=== PATIENT | female | born 1965 | race Caucasian/White ===

== ENCOUNTER 2017-01-05 12:05 | Emergency (ER) | payer MEDICAID | END 2017-01-05 17:22 | disposition home or self-care (01) | LOC: D.ER 12:05 | DX: M54.5 Low back pain (principal); M06.9 Rheumatoid arthritis, unspecified; F31.89 Other bipolar disorder; B19.20 Unspecified viral hepatitis C without hepatic coma; F20.9 Schizophrenia, unspecified ==

== ENCOUNTER 2017-05-20 10:21 | Observation (INO) | payer MEDICAID ==
[2017-05-20 11:58] LABS: BASOPHILS 0.4 % (0-2); EOSINOPHILS 1.3 % (0-7); HEMATOCRIT 34.6 % (36.0-48.0); HEMOGLOBIN 11.4 g/dL (12-16); IMMATURE GRANULOCYTES 0.4 % (0-5); LYMPHOCYTES 18.8 % (15-50); MCH 29.2 pg (26.0-34.0); MCHC 32.9 g/dL (31.0-37.0); MCV 88.7 fL (80.0-100.0); MEAN PLATELET VOLUME 9.5 fL (7.4-10.4); MONOCYTES 9.4 % (2-11); NEUTROPHILS 69.7 % (40-80); RDW 14.8 % (11.5-14.5); WBC 7.8 10x3/uL (4.8-10.8)
[2017-05-20 11:58] LABS: UDS - AMPHET NEGATIVE QUAL (NEGATIVE); UDS - BARB NEGATIVE QUAL (NEGATIVE); UDS - BENZO POSITIVE QUAL (NEGATIVE); UDS - COCAINE NEGATIVE QUAL (NEGATIVE); UDS - OPIATE POSITIVE QUAL (NEGATIVE); UDS - PCP NEGATIVE QUAL (NEGATIVE); UDS - THC NEGATIVE QUAL (NEGATIVE)
[2017-05-20 12:03] LABS: PLATELET COUNT 264 10x3/uL (130-400)
[2017-05-20 12:11] LABS: ALBUMIN 3.6 g/dL (3.4-5.0); ALKALINE PHOSPHATASE 77 U/L (46-116); ALT (SGPT) 24 U/L (10-68); BILIRUBIN - TOTAL 0.15 mg/dL (0.2-1.3); CALC OSMOLALITY 288 mosm/kg (275-300); CALCIUM 9.2 mg/dL (8.5-10.1); CHLORIDE - SERUM 106 mmol/L (98-107); GLUCOSE 103 mg/dL (74-106); PROTEIN - SERUM 7.9 g/dL (6.4-8.2); SODIUM 143 mmol/L (136-145); UREA NITROGEN 24 mg/dL (7-18); eGFR NON AFRICAN AMERICAN 61 mL/min (90-120)
[2017-05-20 12:11] LABS: APPEARANCE HAZY (CLEAR); BACTERIA FEW /hpf (NONE SEEN); BILIRUBIN NEGATIVE (NEGATIVE); COLOR YELLOW (YELLOW); GLUCOSE NEGATIVE (NEGATIVE); HYALINE CAST 0-5 /lpf (NONE SEEN); KETONE NEGATIVE (NEGATIVE); MUCUS <1+ /lpf (NONE SEEN); NITRITE NEGATIVE (NEGATIVE); PROTEIN NEGATIVE (NEGATIVE); RED CELLS - URINE RARE /hpf (0-5); SPECIFIC GRAVITY 1.015 (1.005-1.020); UROBILINOGEN NORMAL (NORMAL)
[2017-05-20 12:22] LABS: CKMB 0.6 U/L (0.0-3.6); CREATINE KINASE 117 UL (21-215)
[2017-05-20 12:23] LABS: TROPONIN-I < 0.017 ng/mL (0.000-0.060)
[2017-05-20 15:55] LABS: CKMB 0.6 U/L (0.0-3.6); CREATINE KINASE 110 UL (21-215); TROPONIN-I < 0.017 ng/mL (0.000-0.060)
[2017-05-20 17:24] VITALS: BP 122/72; BMI 39.9
[2017-05-20 20:00] VITALS: BP 128/80
[2017-05-20 22:04] LABS: CKMB 0.5 U/L (0.0-3.6); CREATINE KINASE 99 UL (21-215); TROPONIN-I < 0.017 ng/mL (0.000-0.060)
--- NOTE | 2017-05-20 22:33 | NUR ---
PRN ZOFRAN ADMINISTERED AT THIS TIME. PT ALERT X3, STATES THAT SHE DOES NOT KNOW WHY SHE IS HERE AT THE HOSPITAL, BUT UNDERSTANDS SHE NEEDS TO BE HERE. CALL LIGHT IN REACH, BED LOW. SRX2 ANGELIA ALARM ON. WILL CONTINUE TO MONITOR.
[2017-05-21 04:00] VITALS: BP 121/82
[2017-05-21 05:22] LABS: CKMB 0.5 U/L (0.0-3.6); CREATINE KINASE 93 UL (21-215); TROPONIN-I < 0.017 ng/mL (0.000-0.060)
--- NOTE | 2017-05-21 07:35 | NUR ---
PT AOX4 RESP EVEN AND NONLABORED PT DENIES NEEDS AT THIS TIME IV TO RIGHT FOREARM PATENT AND INTACT AT THIS TIME SRX2 BED AT LOWEST SETTING CALL LIGHT WITHIN REACH WILL CONTINUE TO MONITOR
--- NOTE | 2017-05-21 07:36 | HP ---
PATIENT: KIA ANDERSEN MEDICAL RECORD: [id number] ACCOUNT: [id number] LOCATION:[id number] : 61 ADMISSION DATE: 05/20/17 HISTORY AND PHYSICAL EXAMINATION HISTORY: A 51-year-old female brought in to the ER with reported generalized weakness and unsteady gait. PAST MEDICAL HISTORY: Significant for bipolar disorder, chronic back pain, rheumatoid arthritis, and schizophrenia. CURRENT MEDICATIONS: Xanax 2 mg b.i.d., Lexapro ____ and Soma. She has been on opiates in the past. Limited historian. Limited insight. She sees psychiatry. She sees a nurse practitioner at some facility for primary care. ALLERGIES: REPORTED PENICILLIN. REVIEW OF SYSTEMS: GENERAL: No reported change in weight or appetite. HEENT: No cephalgia, visual changes, tinnitus, epistaxis, or dysphagia. CARDIOVASCULAR: Denies chest pain or palpitations. PULMONARY: Denies hemoptysis. GI: Denies hematemesis, hematochezia, or melena. : Denies dysuria. MUSCULOSKELETAL: Chronic back pain and arthralgias. SOCIAL HISTORY: Denies alcohol. Denies illicit drugs. PHYSICAL EXAMINATION: VITAL SIGNS: Temperature 99, blood pressure is 122/72, heart rate 85, respirations 16, and O2 sat is 95%. GENERAL: Alert, oriented, in no present distress, answers appropriately. HEENT: Normocephalic and atraumatic. Eyes; pupils are equally round and reactive. Ears; canals patent. TMs are intact. Nose; nares are patent without drainage. Throat; no erythema and no exudate. NECK: Supple. No lymphadenopathy. No JVD. HEART: Regular rate and rhythm. No S3 or S4. No rub. LUNGS: Clear to auscultation bilaterally. Breathing is nonlabored. ABDOMEN: Soft and nontender. Bowel sounds in all 4 quadrants. EXTREMITIES: Present times 4. No edema. NEURO: Intact. SKIN: Warm and dry. No rash. LABORATORY DATA: CK is 110, CK-MB is 0.6, and troponin is less than 0.017. CBC; white count 7.8, hemoglobin 11.4, hematocrit 34.6, and platelets 264. Chemistry shows sodium of 143, potassium 4.0, chloride 106, bicarb 29, BUN 24, and creatinine 1. LFTs normal. Repeat cardiac enzymes normal. Urinalysis; yellow, specific gravity 1.015, negative protein, 1+ leukocyte esterase, and few bacteria. Urine drug screen positive for opiates and positive for benzos. DIAGNOSTIC DATA: CT of the head without contrast; no acute abnormalities. ASSESSMENT AND PLAN: Reported mental status change, appears to be improving, HISTORY AND PHYSICAL [id number] NATHALYKIA R likely medication induced. Monitor the patient overnight with pulse ox and telemetry. If symptoms continue to improve, we will discharge to primary care in a.m. We will hold sedating medications including benzos and opiates. TRANSINT:[id number] Voice Confirmation ID: [id number] DOCUMENT ID: [id number] ALEX RASCON DO at 0736 CC: [id number] DICTATION DATE: 05/20/171851 REFINERY OPERATOR ALKYLATION: 05/20/171951 ADM IN [facility] [address] [place] [address]
[2017-05-21 08:54] VITALS: BP 132/92
--- NOTE | 2017-05-21 10:51 | NUR ---
PT IV DISCONTINUED WITH CATHETER INTACT AT THIS TIME
--- NOTE | 2017-05-21 11:27 | NUR ---
PT GIVEN DISCHARGE INSTRUCTIONS AND TAKEN VIA WHEELCHAIR TO PRIVATE VEHICLE AT THIS TIME
--- NOTE | 2017-05-23 08:12 | DS ---
PATIENT:KIA ANDERSEN :61 MEDICAL RECORD: [id number] DISCHARGE SUMMARY ADMISSION DATE: 05/20/17 DISCHARGE DATE: 05/21/17 DATE OF ADMISSION: 05/20/2017. DATE OF DISCHARGE: 05/21/2017. ADMISSION DIAGNOSIS: Altered mental status, likely related to home medications. DISCHARGE DIAGNOSES: Altered mental status likely related to home medications, also history of bipolar disorder, schizophrenia. She is on multiple psychotropics, anxiolytics, pain medications for chronic back pain. HOSPITAL COURSE: The patient was admitted to the ER. All vital signs were stable, but she reportedly had increased confusion. She improved during her stay in the ER. Physician was still concerned about sending her home until she was back to baseline. She was admitted and monitored overnight. Cardiac enzymes cycled times 3 remained normal. CBC, electrolytes, liver function remained normal. The patient reports she is back to baseline. She has been alert, oriented, anxious to go home. She sees a nurse practitioner for her primary. She sees a psychiatrist. She is instructed to follow up with both this week or early next week. Her will assist her with managing her medications. Recommend decreasing the benzos. Her urine drug screen was positive for benzos and opiates. Also, recommend she discuss this with her primary and her psychiatrist and acid painter for coordination of her medications and use minimal dose required for her quality of life. Patient expressed understanding. We will follow up with her physicians as directed. Return to the ER with worsening symptoms. TRANSINT:[id number] Voice Confirmation ID: [id number] DOCUMENT ID: [id number] ALEX RASCON DO at 0812 CC: [id number] DICTATION DATE: 05/21/17 0739 ASSET MANAGEMENT ANALYST: 05/21/17 1256 DIS IN 05/21/17 [facility] [address] [place] [address]
== END 2017-05-21 11:28 | disposition home or self-care (01) ==
LOC: D.ER 10:21 → D.MS 14:56 → OBSVTIME 14:56 → D.MS 05-21 11:28
PROVIDERS: Family Medicine; ADMIT Family Medicine
DX: R41.82 Altered mental status, unspecified (principal); R53.1 Weakness; R26.81 Unsteadiness on feet; F31.9 Bipolar disorder, unspecified; M06.9 Rheumatoid arthritis, unspecified; F20.9 Schizophrenia, unspecified

== ENCOUNTER 2017-07-15 13:44 | Emergency (ER) | payer MEDICAID | END 2017-07-15 16:09 | disposition home or self-care (01) | LOC: D.ER 13:44 | DX: F31.9 Bipolar disorder, unspecified (principal); Z86.59 Personal history of other mental and behavioral disorders ==

== ENCOUNTER 2017-07-22 11:56 | Emergency (ER) | payer MEDICAID ==
[2017-07-22 12:46] LABS: BASOPHILS 0.4 % (0-2); EOSINOPHILS 2.2 % (0-7); HEMATOCRIT 33.6 % (36.0-48.0); HEMOGLOBIN 10.9 g/dL (12-16); IMMATURE GRANULOCYTES 0.1 % (0-5); LYMPHOCYTES 33.2 % (15-50); MCH 29.3 pg (26.0-34.0); MCHC 32.4 g/dL (31.0-37.0); MCV 90.3 fL (80.0-100.0); MEAN PLATELET VOLUME 9.3 fL (7.4-10.4); MONOCYTES 8.8 % (2-11); NEUTROPHILS 55.3 % (40-80); RBC 3.72 10x6/uL (4.00-5.40); RDW 13.8 % (11.5-14.5); WBC 6.7 10x3/uL (4.8-10.8)
[2017-07-22 12:48] LABS: PLATELET COUNT 180 10x3/uL (130-400)
[2017-07-22 13:04] LABS: ALBUMIN 3.4 g/dL (3.4-5.0); BILIRUBIN - TOTAL 0.2 mg/dL (0.2-1.3); CALCIUM 9.1 mg/dL (8.5-10.1); CARBON DIOXIDE 30.8 mmol/L (21.0-32.0); CREATININE - SERUM 0.9 mg/dL (0.6-1.3); POTASSIUM - SERUM 3.8 mmol/L (3.5-5.1)
[2017-07-22 13:12] LABS: UDS - AMPHET NEGATIVE QUAL (NEGATIVE); UDS - BARB NEGATIVE QUAL (NEGATIVE); UDS - BENZO POSITIVE QUAL (NEGATIVE); UDS - COCAINE NEGATIVE QUAL (NEGATIVE); UDS - OPIATE POSITIVE QUAL (NEGATIVE); UDS - PCP NEGATIVE QUAL (NEGATIVE); UDS - THC NEGATIVE QUAL (NEGATIVE)
[2017-07-22 13:13] LABS: APPEARANCE HAZY (CLEAR); BILIRUBIN NEGATIVE (NEGATIVE); COLOR YELLOW (YELLOW); GLUCOSE NEGATIVE (NEGATIVE); KETONE NEGATIVE (NEGATIVE); NITRITE NEGATIVE (NEGATIVE); PROTEIN NEGATIVE (NEGATIVE); SPECIFIC GRAVITY 1.015 (1.005-1.020); UROBILINOGEN NORMAL (NORMAL); WHITE CELLS - URINE 25-50 /hpf (0-5)
[2017-07-22 13:14] LABS: BACTERIA MODERATE /hpf (NONE SEEN); MUCUS <1+ /lpf (NONE SEEN); RED CELLS - URINE RARE /hpf (0-5)
== END 2017-07-22 14:50 | disposition home or self-care (01) ==
LOC: D.ER 11:56
PROVIDERS: Emergency Medicine; Physician Assistant
DX: R41.82 Altered mental status, unspecified (principal); T42.4X1A Poisoning by benzodiazepines, accidental (unintentional), initial encounter; Y92.019 Unspecified place in single-family (private) house as the place of occurrence of the external cause; E11.9 Type 2 diabetes mellitus without complications; B19.20 Unspecified viral hepatitis C without hepatic coma

== ENCOUNTER → 2017-11-12 11:27 | Outpatient (CLI) | payer MEDICAID | END | disposition home or self-care (01) | LOC: D.RAD 11:27 | DX: M25.561 Pain in right knee (principal); M25.562 Pain in left knee; G89.29 Other chronic pain; M79.641 Pain in right hand ==